=== PATIENT | male | born 1955 | race Caucasian/White ===

== ENCOUNTER 2021-10-12 20:05 | Emergency (ER) | payer MEDICARE, MEDICAID ==
[~2021-10-12] VITALS: Ht 182.9 cm; Wt 87.9 kg
[~2021-10-12 20:05] MED LIST: DILT-36 PO; ONDA8TAB13 PO
[2021-10-12 21:55] LABS: BASOPHILS % (AUTO) 0.7 % (0-1); EOSINOPHILS % (AUTO) 0.5 % (0-6); HEMATOCRIT 44.9 % (42.0-52.0); LYMPHOCYTES # (AUTO) 0.7 X10'3 (1.1-4.8); MEAN CORPUSCULAR HEMOGLOBIN 31.4 PG (27.0-31.0); MEAN CORPUSCULAR HGB CONC 33.3 g/dL (33.0-36.5); MEAN CORPUSCULAR VOLUME 94.2 FL (78-98); MEAN PLATELET VOLUME 8.8 FL (7.4-10.4); MONOCYTES # (AUTO) 0.6 X10'3 (0-0.9); MONOCYTES % (AUTO) 9.3 % (2-12); NEUTROPHILS # (AUTO) 4.7 X10'3 (1.8-7.7); NEUTROPHILS % (AUTO) 78.5 % (42-75); PLATELET COUNT 173 X10'3 (140-440); RED BLOOD COUNT 4.77 X10'6 (4.70-6.10); RED CELL DISTRIBUTION WIDTH 16.4 % (11.5-14.5)
[2021-10-12 22:04] LABS: ALANINE AMINOTRANSFERASE 84 U/L (12-78); ALBUMIN 3.6 G/DL (3.4-5.0); ALBUMIN/GLOBULIN RATIO 0.9 (1.1-1.5); ALKALINE PHOSPHATASE 100 IU/L (46-116); ANION GAP 14 (8-16); ASPARTATE AMINO TRANSFERASE 88 U/L (10-37); BILIRUBIN,TOTAL 1.7 MG/DL (0.1-1.0); BLOOD UREA NITROGEN 12 MG/DL (7-18); BUN/CREATININE RATIO 15.8 (5.4-32.0); CALCIUM 8.3 MG/DL (8.5-10.1); CHLORIDE 102 MMOL/L (99-107); CREATININE 0.76 MG/DL (0.60-1.10); GLUCOSE 83 MG/DL (70-104); POTASSIUM 4.3 MMOL/L (3.5-5.1); SODIUM 142 MMOL/L (135-145); TOTAL CARBON DIOXIDE 26.5 MMOL/L (24-32); TOTAL PROTEIN 7.6 G/DL (6.4-8.2); eGFR > 90 ML/MIN
[2021-10-12 22:15] LABS: ETHANOL 0.027 GM/DL (0.0-0.010)
[2021-10-12] MEDS ORDERED: NO HOME MEDS (22:22)
--- NOTE | 2021-10-12 23:47 | NUR ---
PT brought over to ER overflow in stable condition
--- NOTE | 2021-10-13 00:28 | NUR ---
pt is asleep, respirations WNL
[2021-10-13 00:54] LABS: URINE AMPHETAMINE SCREEN NEGATIVE (Neg); URINE BARBITUATE SCREEN NEGATIVE (Neg); URINE BENZODIAZEPINES SCREEN NEGATIVE (Neg); URINE CANNABINOID SCREEN POSITIVE (Neg); URINE COCAINE SCREEN NEGATIVE (Neg); URINE METHADONE SCREEN NEGATIVE (Neg); URINE OPIATE SCREEN NEGATIVE (Neg); URINE PHENCYCLIDINE SCREEN NEGATIVE (Neg)
--- NOTE | 2021-10-13 02:38 | NUR ---
Pt resting quietly in bed
[2021-10-13 05:10] VITALS: BP 99/63
--- NOTE | 2021-10-13 07:05 | NUR ---
Received Pt in bed sleeping w/o distress at this time.
--- NOTE | 2021-10-13 09:00 | NUR ---
Pt up to bathroom and returned to bed. Pt ate breakfast well.
--- NOTE | 2021-10-13 13:34 | NUR ---
Pt [facility]. Pt signed DC papers and escorted out of hospital.
[2021-12-15] MEDS ORDERED: DILT30TA2 PO (11:49)
[2021-12-15] MEDS ORDERED: gabapentin capsule PO (11:49)
[2021-12-15] MEDS ORDERED: LEVO-65 PO (20:32)
== END 2021-10-13 13:38 ==
LOC: ER 20:07
DX: R45.851 Suicidal ideations (principal); Z20.822 Contact with and (suspected) exposure to COVID-19; M54.50 Low back pain, unspecified; M25.512 Pain in left shoulder; M25.511 Pain in right shoulder; G89.29 Other chronic pain; F41.9 Anxiety disorder, unspecified; F31.9 Bipolar disorder, unspecified; F20.9 Schizophrenia, unspecified; Z90.49 Acquired absence of other specified parts of digestive tract; Z59.00 Homelessness unspecified; Z79.899 Other long term (current) drug therapy
CPT/HCPCS: 36415; 80053; 80305; 80320; 84443; 85025; 87811; 99285

== ENCOUNTER 2022-10-12 15:13 | Emergency (ER) | payer MEDICARE, MEDICAID ==
[~2022-10-12] VITALS: Ht 180.3 cm; Wt 87.7 kg
[~2022-10-12 15:13] MED LIST changes: -DILT-36 PO; +DILT30TA2 PO; +NO HOME MEDS; -ONDA8TAB13 PO; +gabapentin capsule PO
[2022-10-12 17:48] LABS: BASOPHILS % (AUTO) 0.5 % (0-1); EOSINOPHILS % (AUTO) 0 % (0-6); HEMATOCRIT 41.3 % (42.0-52.0); HEMOGLOBIN 13.6 g/dl (14.0-17.9); LYMPHOCYTES # (AUTO) 0.7 X10'3 (1.1-4.8); LYMPHOCYTES % (AUTO) 7.2 % (21-51); MEAN CORPUSCULAR HEMOGLOBIN 31.5 PG (27.0-31.0); MEAN CORPUSCULAR HGB CONC 32.8 g/dL (33.0-36.5); MEAN PLATELET VOLUME 8.8 FL (7.4-10.4); MONOCYTES # (AUTO) 0.6 X10'3 (0-0.9); MONOCYTES % (AUTO) 6.2 % (2-12); NEUTROPHILS # (AUTO) 8.8 X10'3 (1.8-7.7); NEUTROPHILS % (AUTO) 86.1 % (42-75); PLATELET COUNT 212 X10'3 (140-440); RED CELL DISTRIBUTION WIDTH 15.3 % (11.5-14.5); WHITE BLOOD COUNT 10.2 X10'3 (4.5-11.0)
[2022-10-12 18:09] VITALS: BP 136/96
[2022-10-12 18:13] LABS: ALANINE AMINOTRANSFERASE 23 U/L (12-78); ALBUMIN 3.9 G/DL (3.4-5.0); ALBUMIN/GLOBULIN RATIO 0.9 (1.1-1.5); ALKALINE PHOSPHATASE 84 IU/L (46-116); ANION GAP 16 (8-16); ASPARTATE AMINO TRANSFERASE 23 U/L (10-37); BILIRUBIN,TOTAL 0.7 MG/DL (0.1-1.0); BLOOD UREA NITROGEN 21 MG/DL (7-18); BUN/CREATININE RATIO 24.1 (10.0-20.0); CALCIUM 8.5 MG/DL (8.5-10.1); CHLORIDE 104 MMOL/L (99-107); CREATININE 0.87 MG/DL (0.60-1.10); GLUCOSE 128 MG/DL (70-104); POTASSIUM 4.3 MMOL/L (3.5-5.1); SODIUM 143 MMOL/L (135-145); TOTAL CARBON DIOXIDE 22.7 MMOL/L (24-32); TOTAL PROTEIN 8.1 G/DL (6.4-8.2); eGFR 88 ML/MIN
[2022-10-12] MEDS ORDERED: normal saline 1000ML IV soln IVB ONE (18:50)
[2022-10-12] MEDS ORDERED: ondansetron/PF 4mg/2ml inj IV ONE (18:55)
[2022-10-12] MEDS ORDERED: acetaminophen 325mg tablet PO ONE (19:45)
== END 2022-10-12 20:00 | disposition home or self-care (01) ==
LOC: ER 15:14
DX: F10.129 Alcohol abuse with intoxication, unspecified (principal); F31.9 Bipolar disorder, unspecified; F17.200 Nicotine dependence, unspecified, uncomplicated; Z98.890 Other specified postprocedural states; Z59.00 Homelessness unspecified; Y90.9 Presence of alcohol in blood, level not specified; W19.XXXA Unspecified fall, initial encounter; Y93.89 Activity, other specified; Y92.89 Other specified places as the place of occurrence of the external cause; Y99.8 Other external cause status
CPT/HCPCS: 36415; 70450; 71045; 72125; 80053; 80320; 85025; 99284

== ENCOUNTER 2022-10-17 01:32 | Emergency (ER) | payer MEDICARE, MEDICAID ==
[~2022-10-17] VITALS: Ht 180.3 cm; Wt 75.0 kg
--- NOTE | 2022-10-17 01:32 | NUR ---
LAB CALLED TO [facility] FOR THIS PT PENDING MD ASSESSMENT
[2022-10-17] MEDS ORDERED: ketorolac trometh. 30mg/ml inj. IV ONE (02:35)
[2022-10-17] MEDS ORDERED: morphine 4 MG/ML inj SYRINge IV ONE (02:35)
[2022-10-17] MEDS ORDERED: ondansetron/PF 4mg/2ml inj IV ONE (02:35)
[2022-10-17] MEDS ORDERED: LIDOcaine 5% patch TP ONE (03:05)
[2022-10-17] MEDS ORDERED: HYDROcodone/acetaminophen 5mg/325mg tablet PO ONE (03:05)
[2022-10-17] MEDS ORDERED: LIDO700A32 TOP (03:06)
[2022-10-17] MEDS ORDERED: HYDR-3965 PO (03:06)
[2022-10-17 03:27] VITALS: BP 116/66
== END 2022-10-17 03:32 | disposition home or self-care (01) ==
LOC: ER 01:32
DX: R07.81 Pleurodynia (principal); F31.9 Bipolar disorder, unspecified; Z98.890 Other specified postprocedural states; Z59.00 Homelessness unspecified
CPT/HCPCS: 71045; 93005; 96374; 96375; 99284; J1885; J2270; J2405

== ENCOUNTER 2022-10-20 23:09 | Emergency (ER) | payer MEDICARE, MEDICAID ==
[~2022-10-20] VITALS: Ht 180.3 cm; Wt 87.3 kg
[~2022-10-20 23:09] MED LIST changes: +HYDR-3965 PO; +LIDO700A32 TOP
[2022-10-20 23:13] VITALS: BP 143/97
--- NOTE | 2022-10-21 00:16 | NUR ---
PT COULD NOT POINT OUT RASH OR DESCRIBE RASH TO MD AND NURSE.
[2022-10-21] MEDS ORDERED: SULF1TAB49 PO (00:18)
[2022-10-21] MEDS ORDERED: sulfamethoxazole/trimethoprim DS (800/160mg) tablet PO ONE (00:20)
[2022-10-21] MEDS ORDERED: magnesium oxide 400mg tablet PO ONE (00:20)
[2022-10-22] MEDS ORDERED: CEPH-585 PO (02:52)
[2022-10-22] MEDS ORDERED: SULF1TAB49 PO (02:52)
== END 2022-10-21 00:35 | disposition home or self-care (01) ==
LOC: ER 23:10
DX: R21 Rash and other nonspecific skin eruption (principal); L03.113 Cellulitis of right upper limb; L03.114 Cellulitis of left upper limb; F10.129 Alcohol abuse with intoxication, unspecified; Y90.9 Presence of alcohol in blood, level not specified; F31.9 Bipolar disorder, unspecified; Z98.890 Other specified postprocedural states; Z59.00 Homelessness unspecified
CPT/HCPCS: 99284

== ENCOUNTER 2022-10-22 01:21 | Emergency (ER) | payer MEDICARE, MEDICAID ==
[~2022-10-22] VITALS: Ht 182.9 cm; Wt 100.0 kg
[~2022-10-22 01:21] MED LIST changes: +SULF1TAB49 PO
[2022-10-22] MEDS ORDERED: CEPH-585 PO (02:52)
[2022-10-22] MEDS ORDERED: SULF1TAB49 PO (02:52)
== END 2022-10-22 03:10 | disposition home or self-care (01) ==
LOC: ER 01:22
DX: L03.114 Cellulitis of left upper limb (principal); L03.113 Cellulitis of right upper limb; G89.29 Other chronic pain; F31.9 Bipolar disorder, unspecified; Z90.49 Acquired absence of other specified parts of digestive tract
CPT/HCPCS: 99283